=== PATIENT | female | born 1965 | race Hispanic/Latino ===

== ENCOUNTER → 2025-05-25 | Outpatient (CLI) | payer OTHER ==
--- NOTE | 2025-05-26 08:38 | HMCIMG ---
EXAM: CT Calcium Scoring CLINICAL HISTORY: Patient presents for coronary artery calcium screening. TECHNIQUE: Non-contrast axial CT images of the heart were obtained using a standard coronary artery calcium scoring protocol. Agatston scoring was performed. COMPARISON: None provided. FINDINGS: CORONARY ARTERIES (Agatston Method): Left Main: 0 Left Anterior Descendin Left Circumflex: 0 Right Coronary Artery: 0 Total Coronary Artery Calcium Score: 0 ADDITIONAL FINDINGS: No extracardiac abnormality visualized within the limited field of view. IMPRESSION: Coronary artery calcium score of 0. No CT evidence of coronary artery calcification. /Alleghany
== END | disposition home or self-care (01) ==
LOC: RAH 14:40
PROVIDERS: ATTEND Internal Medicine
DX: Z13.6 Encounter for screening for cardiovascular disorders (principal)
CPT/HCPCS: 75571